=== PATIENT | female | born 1975 | race Caucasian/White ===

== ENCOUNTER 2021-09-15 06:25 | Inpatient (IN) ==
[2021-09-15] MEDS ORDERED: Ringers Solution, Lactated 1,000 ML IVC SCH ×2 (07:00→12:32)
[2021-09-15] MEDS ORDERED: CeFAZolin Syr 2,000MG/20 ML 2,000 MG/20 ML SYRINGE IVPB ONE (07:15)
[2021-09-15] MEDS ORDERED: *HR* Midazolam HCl 2 MG/2 ML VIAL ONE (07:38)
[2021-09-15] MEDS ORDERED: *HR* Propofol 200 MG/20 ML VIAL IVP ONE (07:38)
[2021-09-15] MEDS ORDERED: *HR* FentaNYL (PF) 100 MCG/2 ML VIAL ONE ×2 (07:38→08:55)
[2021-09-15] MEDS ORDERED: Lidocaine -MPF 2% 5 ML VIAL ONE (07:41)
[2021-09-15] MEDS ORDERED: Ondansetron 4 MG/2 ML VIAL ONE (07:41)
[2021-09-15] MEDS ORDERED: Lidocaine HCL 4 ML Topical Solution (Laryng-O-Jet Kit Sterile Pak) TP ONE (07:41)
[2021-09-15] MEDS ORDERED: *HR* Rocuronium Bromide 50 MG/5 ML VIAL ONE ×2 (07:41→09:47)
[2021-09-15] MEDS ORDERED: *HR* HYDROmorphone PF 0.5 MG/0.5 ML SYRINGE IVP PRN (08:14)
[2021-09-15] MEDS ORDERED: Promethazine 6.25 MG in Water for inj. (sterile) 20 ML IVPB PRN (08:14)
[2021-09-15] MEDS ORDERED: Ondansetron 4 MG/2 ML VIAL IVP PRN (08:14)
[2021-09-15] MEDS ORDERED: *HR* OxyCODONE Immed Rel 5 MG TABLET PO PRN ×2 (08:14→12:32)
[2021-09-15] MEDS ORDERED: Acetaminophen IV 1,000 MG/100 ML BAG IVPB ONE (08:51)
[2021-09-15] MEDS ORDERED: *HR* HYDROMORPHONE 2 MG/ML VIAL ONE (10:48)
[2021-09-15] MEDS ORDERED: Naloxone 0.4 MG/ML INJ IVP PRN (12:32)
[2021-09-15] MEDS: *HR* OxyCODONE/APAP 5/325 TABLET PO PRN ×3 (14:07→23:09)
[2021-09-15] MEDS: Ibuprofen 600 MG TABLET PO PRN (18:31)
[2021-09-16] MEDS: Ibuprofen 600 MG TABLET PO PRN (02:41)
[2021-09-16 02:58] VITALS: O2SAT 96
[2021-09-16] MEDS: *HR* OxyCODONE/APAP 5/325 TABLET PO PRN (06:16)
[2021-09-16 07:17] VITALS: BP 104/65; PULSE 67; TEMP 97.6
== END 2021-09-16 10:07 | disposition home or self-care (01) | DRG 743 ==
LOC: SAMDAY 06:25 → 1ANU 12:20 → 1NENUOBS 12:23
PROVIDERS: ADMIT Student in an Organized Health Care Education/Training Program; ATTEND Student in an Organized Health Care Education/Training Program